=== PATIENT | female | born 2005 | race Caucasian/White ===

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

== ENCOUNTER 2025-03-26 15:18 | Outpatient (CLI) | payer BC, SELFPAY ==
--- OUTSIDE RECORDS SUMMARY | 2025-03-08 10:00 | XMS_ITS | Encounter Summary ---
[facility] Address [address] [place] [address] Care Team Providers Care Behavioral Health Specialist Name Role Phone Efren Ferrara MD Primary Care Provider + [phone] Encounter Details Date Type Department Care Team (Latest Contact Info) Description 03/08/2025 10:00 AM EDT Clinical Support [facility] [place] [address] Need for vaccination (Primary Dx) Social History Tobacco Use Types Packs/Day Years Used Date Smoking Tobacco: Never Smokeless Tobacco: Never Alcohol Use Standard Drinks/Week Comments Never 0 (1 standard drink = 0.6 oz pur e alcohol) AUDIT-C Answer Date Recorded Q1: How often do you have a drink containing alc ohol? Never 03/30/2021 Average Number of Drinks Not on file Frequency of Binge Drinking Not on file 03/19 Comments No Sex and Gender Information Value Date Recorded Sex Assigned at Not on file Legal Sex Female 2:39 PM EDT Gender Identity Not on file Sexual Orientation Not on file documented as of this encounter Plan of Treatment Upcoming Encounters Date Type Department Care Team (Late st Contact Info) Description 04/05/2025 10:05 AM EDT Clinical Support [facility] [address] [place] [address] 07/12/2025 9:00 AM EST Clinical Support [facility] [address] [place] [address] documented as of this encounter Visit Diagnoses Diagnosis Need for vaccination- Primary Need for prophylactic vaccination and inoculation against unspecified single disease documented in this encounter Care Teams Behavioral Health Specialist Relationship Specialty Start Date End Date Efren Ferrara MD [address] [facility] [address] [facility] [place] [address] PCP - General Adolescent Medicine 03/30/21 documented as of this encounter
--- OUTSIDE RECORDS SUMMARY | 2025-03-26 15:21 | XMS_ITS | Encounter Summary ---
[facility] [address] [place] [address] Care Team Providers Care Textile Slitting Machine Operator Name Role Phone Efren Ferrara MD Primary Care Provider + [phone] Encounter Details Date Type Department Care Team (Latest Contact Info) Description 03/08/2025 Travel Social History Tobacco Use Types Packs/Day Years Used Date Smoking Tobacco: Never Smokeless Tobacco: Never Alcohol Use Standard Drinks/Week Comments Never 0 (1 standard drink = 0.6 oz pur e alcohol) AUDIT-C Answer Date Recorded Q1: How often do you have a drink containing alc ohol? Never 03/30/2021 Average Number of Drinks Not on file 021 Frequency of Binge Drinking Not on file [...] Description 04/05/2025 10:05 AM EDT Clinical Support [facility] [place] [address] [place] [address] 07/12/2025 9:00 AM EST Clinical Support [facility] [address] [place] [address] documented as of this encounter Visit Diagnoses Not on filedocumented in this encounter Care Teams Textile Slitting Machine Operator Relationship Specialty Start Date End Date Efren Ferrara MD [address] [place] [address] [place] [address] PCP - General Adolescent Medicine 03/30/21 documented as of this encounter
--- OUTSIDE RECORDS SUMMARY | 2025-03-26 15:21 | XMS_ITS | Clinical Summary ---
[facility] [address] [place] [address] Care Team Providers Care Donor Services Team Leader Name Role Phone Efren Ferrara MD Primary Care Provider + [phone] Allergies No known active allergies Medications medroxyPROGESTE Elio (DEPO-PROVERA) 150 MG/ML injection Inject 1 mL into the appropriate muscle as directed by prescriber Every 3 (Three) Months. Active fluconazole (DIFLUCAN) 150 MG tablet Take 1 tablet by mouth As Needed (yeast). Take one tablet now and repeat in 3 days 2 tablet Active Active Problems No known active problems Encounters Date Type Department Care Team Description 03/08/2025 10:00 AM EDT Clinical Support [facility] O[facility] [address] [place] [address] Need for vaccination (Primary Dx) 03/08/2025 Travel 01/14/2025 Results Follow-Up [facility] [address] [place] [address] Dulce Li APRN 01/04/2025 9:00 AM EDT Office Visit [facility] [address] [place] [address] Dulce Li, PERSONAL LINES SALES REP Need for vaccination (Primary Dx); Depo-Provera contraceptive status; Screening for STD (sexually transmitted disease); Screening for cervical cancer; Women's annual routine gynecological examination 01/04/2025 Travel from Last 3 Months Immunizations Immunization Administration Dates Next Due Hpv9 03/08/2025,01/04/2025 Family History Medical History Relation Name Comments Breast cancer Maternal Grandmother Jeanette Johnson Relation Name Status Comments Maternal Grandmother Jeanette Johnson Social History Tobacco Use Types Packs/Day Years [...] on file Sexual Orientation Not on file Last Filed Vital Signs Vital Sign Reading Time Taken Comments Blood Pressure 120/70 01/04/2025 9:08 AM EDT Pulse - - Temperature - - Respiratory Rate - - Oxygen Saturation - - Inhaled Oxygen Concentration - - Weight 67.8 kg (149 lb 6.4 oz) 01/04/2025 9:08 A M EDT Height 167.6 cm (5' 5.98 ) 01/04/2025 9:08 AM ED T Body Mass Index 24.13 01/04/2025 9:08 AM EDT Plan of Treatment Upcoming Encounters Date Type Department Care Team (Late st Contact Info) Description 04/05/2025 10:05 AM EDT Clinical Support [facility] O[facility]YN [address] [place] [address] 07/12/2025 9:00 AM EST Clinical Support [facility] [address] [place] [address] Health Maintenance Due Date Last Done Comments MENINGOCOCCAL B VACCINE (1 of 2 - Standard) 2019 ANNUAL PHYSICAL 03/30/2021 HEPATITIS C SCREENING 03/30/2021 TDAP/TD VACCINES (1 - Tdap) 10/22/2022 COVID-19 Vaccine (1 - season) 2024 INFLUENZA VACCINE 05/19/2025 05/21/2018, 08/10/2017 HPV VACCINES (3 - 3-dose series) 07/07/2025 03/08/2025, 01/04/2025 CHLAMYDIA SCREENING 01/04/2026 01/04/2025, 10/10/2023, 05/24/2022, Additional history exists Annual Gynecologic Pelvic and Breast Exam 01/05/2026 01/04/2025 PAP SMEAR 01/05/2028 01/04/2025 Pneumococcal Vaccine 0-49 Aged Out 02/15/2005, No longer eligible based on patient's age to complete this topic MENINGOCOCCAL VACCINE Completed 03/07/2020 Procedures Procedure Name Priority Date/Time Associated Diagnosis Comments LIQUID-BASED PAP SMEAR WITH HPV GENOTYPING IF ASCUS, [facility] ([facility]) Routine 01/04/2025 2:35 PM EDT Screening for STD (sexually transmitted disease) Screening for cervical cancer from Last 3 Months Results * LIQUID-BASED PAP SMEAR WITH HPV GENOTYPING IF ASCUS ([facility]) (01/04/2025 2:35 PM EDT) Reference Lab Report [facility] [address] [place] [address] or [phone] Cheko Live M.D., Pigment Weigher PATIENT NAME LABORATORY NO. 65JEANETTE PRAJAPATI [id number] AGE SEX SSN CLIENT REF # [id number] ([place]) 21 2005 F [id number] Chapo MARTINEZ REQUESTING Saira ATTENDING [place] [address] DULCE LI DATE COLLECTED DATE RECEIVED DATE REPORTED 01/04/2025 01/04/2025 01/12/2025 ThinPrep Pap with Galeno Plusgic [facility] DIAGNOSIS: Epithelial cell abnormality. (ASC) Atypical squamous cells of undetermined significance. COMMENT: FUNGAL ORGANISMS MORPHOLOGICALLY CONSISTENT WITH TSERING SPECIES ARE PRESENT. Professional interpretation rendered by Donnell Adkins M.D.,F.C.A.P. at [facility] [employer] [facility], [facility], [address] [place] [address]. SPECIMEN ADEQUACY: SATISFACTORY FOR EVALUATION Transformation zone is present. SOURCE OF SPECIMEN: CERVICAL/ENDOCERVI NICOLE SLIDES: 1 CLINICAL HISTORY: Screening for STD (sexually transmitted disease) Screening for cervical cancer Depo Provera HPV HR-HPV POOL: Positive The Aptima HPV assay is an in vitro nucleic acid amplification test for the qualitative detection of E6/E7 viral messenger RNA from 14 high risk types of HPV in cervical specimens. The high risk HPV types detected include: 16, 18, 31, 33, 35, 39, 45, 51, 52, 56, 58, 59, 66, 68 HPV Genotyping HPV 16: Negative HPV 18/45: Negative The Aptima HPV 16, 18/45 genotype assay is an in vitro nucleic acid amplification test for the qualitative detection of E6/E7 viral messenger RNA of human papillomavirus (HPV) types 16,18/45 in cervical specimens from women with Aptima HPV positive results. The Aptima HPV 16, 18/45 genotype assay can differentiate HPV 16 from HPV 18 and/or HPV 45, but does not differentiate between HPV 18 and HPV 45. Chlamydia / Gonorrhea CHLAMYDIA TRACHOMATIS: Negative NEISSERIA GONORRHOEAE: Negative The Aptima Combo 2 assay is a target amplification nucleic acid probe test that utilizes target capture for the in vitro qualitative detection and differentiation of ribosomal RNA from Chlamydia trachomatis and Neisseria gonorrhoeae to aid in the diagnosis of chlamydial and gonococcal disease using the Myton system. Trichomonas TRICHOMONAS VAGINALIS: Negative The Aptima Trichomonas vaginalis assay is an in vitro qualitative nucleic acid amplification test for the detection of ribosomal RNA to aid in the diagnosis of trichomoniasis. LANOLIN PLANT OPERATOR: NUZHAT OROPEZA (ASCP) REVIEWED, DIAGNOSED AND ELECTRONICALLY SIGNED BY: Donnell Adkins M.D.,F.C.A.P. CPT CODES: [id number], [id number], [id number], [id number], [id number], [id number], [id number] 01/12/2025 12:46 PM EDT [facility] ThinPrep Vial Collection / Unknown 01/04/2025 2:35 PM EDT 01/04/2025 2:35 PM EDT us Dulce Li PERSONAL LINES SALES REP PATHOLOGY/CYTOLOGY ORDERA BLES Final Result [facility]
[address] [place] [address], [place] [phone] from Last 3 Months Insurance EMPLOYEE Care Teams Donor Services Team Leader Relationship Specialty Start Date End Date Efren Ferrara MD [facility] [address] [place] [address] PCP - General Adolescent Medicine 03/30/21
--- OUTSIDE RECORDS SUMMARY | 2025-03-26 15:21 | XMS_ITS | Encounter Summary ---
[facility] Address [address] [place] [address] Care Team Providers Care Steel Placer Name Role Phone Efren Ferrara MD Primary Care Provider + [phone] Encounter Details Date Type Department Care Team (Late Contact Info) Description 01/14/2025 Results Follow-Up [facility] [address] [place] [address] Dulce Li, CANOE INSPECTOR FINAL [address] [facility] [address] [place] [address] Social History Tobacco Use Types Packs/Day Years [...] Description 04/05/2025 10:05 AM EDT Clinical Support [facility] [address] [place] [address] 07/12/2025 9:00 AM EST Clinical Support [facility] [address] [place] [address] documented as of this encounter Visit Diagnoses Not on filedocumented in this encounter Care Teams Steel Placer Relationship Specialty Start Date End Date Efren Ferrara MD [address] [place] [address] [facility] [address] [place] [address] PCP - General Adolescent Medicine 03/30/21 documented as of this encounter
[2025-03-26 16:06] LABS: Hematocrit 40.0 % (37.0-47.0); Hemoglobin 13.6 g/dL (12.2-16.2); Mean Corpuscular HGB Conc 34.0 g/dL (31.8-35.4); Mean Corpuscular Hemoglobin 32.1 pg (27.0-31.2); Mean Corpuscular Volume 94.3 fl (81-99); Platelet Count 291 K/mm3 (142-424); Red Blood Count 4.24 M/mm3 (4.20-5.40); White Blood Count 7.2 K/mm3 (4.8-10.8)
[2025-03-26 16:33] LABS: RBC Morphology Normal; Total Cells Counted 100
[2025-03-26 19:02] LABS: Alanine Aminotransferase 14 U/L (12-78); Albumin Level 4.5 g/dl (3.5-5.0); Albumin/Globulin Ratio 1.9 (1.1-1.8); Aspartate Amino Transferase 21 U/L (14-36); Blood Urea Nitrogen 12 mg/dl (7-17); Calcium 9.3 mg/dl (8.4-10.2); Chloride 107 mmol/L (98-107); Creatinine,Serum 0.70 mg/dl (0.52-1.04); Estimated Glomerular Filt Rate 106 ml/min (>60); GFR (African American) 128 ML/MIN (>60); Globulin 2.4 g/dL (1.3-3.2); Glucose 90 mg/dl (74-100); Potassium 4.0 mmoL/L (3.5-5.1); Sodium 138 mmol/L (136-145); Total Protein,Serum 6.9 g/dl (6.3-8.2)
[2025-03-26 19:19] LABS: Free Thyroxine Index 2.7 ug/dL (5.93-13.13); T4 (Thyroxine) 7.0 ug/dl (5.53-11.0); Triiodothryronine (T3) Uptake 38 % (23.5-40.5)
[2025-03-26 19:20] LABS: Alkaline Phosphatase 53 U/L (38-126); Anion Gap 14.0 mEq/L (5-15); Bilirubin,Total 0.2 mg/dl (0.2-1.3); Carbon Dioxide 21 mmol/L (22.0-30.0)
[2025-03-26 19:33] LABS: Thyroid Stimulating Hormone 0.68 uIU/mL (0.465-4.68)
[2025-03-27 07:13] LABS: RPR W/RFX Titers Nonreactive (Nonreactive)
[2025-03-27 08:16] LABS: Testosterone,Total 18 ng/dL (13-71)
[2025-03-27 09:25] LABS: Immunoglobulin A, Qn 227 mg/dL (87-352); Immunoglobulin G, Qn 1103 mg/dL (586-1602)
== END 2025-03-26 23:59 | disposition home or self-care (01) ==
PROVIDERS: PCP Internal Medicine Adolescent Medicine; Visit Provider Internal Medicine Adolescent Medicine
DX: L68.0 Hirsutism (principal); J35.8 Other chronic diseases of tonsils and adenoids; K12.1 Other forms of stomatitis; R30.0 Dysuria
CPT/HCPCS: 36415; 80053; 80074; 82784; 82785; 84403; 84436; 84443; 84479; 85007; 85014; 85018; 85048; 85049; 86592; 87389